=== PATIENT | male | born 1995 | race Caucasian/White ===

== ENCOUNTER 2018-05-18 19:42 | Emergency (ER) | payer SELFPAY ==
[2018-05-18 20:41] VITALS: BP 113/66
--- NOTE | 2018-05-18 21:02 | UC ---
Throat Pain/Nasal Diogenes HPI - HPI Summary HPI Summary: Pt presents with sore throat x 2 days tactile fever, painful swallowing. no drooling ear feel full. no sinus pain. no cough. no rash. + theraflu with little relief Pt's medications reviewed this visit - History of Current Complaint Chief Complaint: UCRespiratory Stated Complaint: SORE THROAT Time Seen by Provider: 05/18/18 21:01 Hx Obtained From: Patient Onset/Duration: Gradual Onset Severity: Moderate Pain Intensity: 5 - Allergies/Home Medications Allergies/Adverse Reactions: Allergies Allergy/AdvReac Type Severity Reaction Status Date / Time No Known Allergies Allergy Verified 05/18/18 20:41 Home Medications: Home Medications Pheniramine/P-Eph/Acetaminophn [Theraflu Flu & Sore Throa] 1 ramsey PO PRN [History] Vitamins* 05/18/18 [History] PMH/Surg Hx/FS Hx/Imm Hx Previously Healthy: Yes - Surgical History Surgical History: Yes Surgery Procedure, Year, and Place: RIGHT HIP ARTHROSCOPY 2011. WISDOM TEETH REMOVAL. SURGERY FOR EPIDURAL HEMATOMA 01/2018 - Family History Known Family History: Positive: Respiratory Disease - Social History Occupation: Student Lives: Dormitory/Roommates Alcohol Use: Occasionally Alcohol Amount: 3 TIMES/WEEK Substance Use Type: Marijuana Substance Use Comment - Amount & Last Used: MEDICAL MARIJUANA FOR DEPRESSION AND ANXIETY Smoking Status (MU): Former Smoker Type: Cigarettes Amount Used/How Often: LESS THAN 1/4 PPD Have You Smoked in the Last Year: Yes When Did the Patient Quit Smoking/Using Tobacco: 04/21/15 - Immunization History Most Recent Influenza Vaccination: UNSURE Review of Systems Constitutional: Negative Skin: Negative ENT: Sore Throat All Other Systems Reviewed And Are Negative: Yes Physical Exam - Summary Physical Exam Summary: Vital Signs Reviewed: Yes A+Ox3, no distress Eyes: Conjunctiva Clear, ARYA. EOM intact and full ENT: Hearing grossly normal TM x 2 clear, mmoist, mild PND + erythema, uvula midline, no exudate, Neck: Positive: Supple + submandibular LA b/l Respiratory: Positive: No respiratory distress, No accessory muscle use + CTA throughout no w/r Cardiovascular: RRR nl s1, s2 no m/r CBT <2 sec abd soft + BS nt/nd no guarding, no distension Musculoskeletal Exam: FLORES x 4 without difficulty Strength Intact, ROM Intact Neurological: Positive: Alert, + sensation throughout Psychological: Positive: Normal Response To Family Skin: Positive: no rash, no ecchymosis Triage Information Reviewed: Yes Vital Signs: Initial Vital Signs Temp 99.2 F 05/18/18 20:36 Pulse 79 05/18/18 20:36 Resp 16 05/18/18 20:36 BP 113/66 05/18/18 20:36 Pulse Ox 99 05/18/18 20:36 Throat Pain/Nasal Course/Dx - Course Course Of Treatment: Pt with sore throat x 2 days. Pt with + strep. abx. hydrate. motrin/apap. secretion precaution. return precautions - Differential Dx/Diagnosis Provider Diagnoses: strep pharyngitis Discharge - Sign-Out/Discharge Documenting (check all that apply): Patient Departure All imaging exams completed and their final reports reviewed: No Studies - Discharge Plan Condition: Stable Disposition: HOME Prescriptions: Amoxicillin PO (*) [Amoxicillin 500 MG CAP*] 500 mg PO Q12H #20 cap predniSONE TAB* [Deltasone 20 MG TAB*] 40 mg PO DAILY #8 tab Patient Education Materials: Strep Throat (ED) Referrals: No Primary Care Phys,NOPCP [Primary Care Provider] - [facility] [Outside] Additional Instructions: - Okay to alternate ibuprofen (Advil, Motrin) 600mg and Tylenol every 3 hours for pain. Take with food. Do NOT take for more than 4-5 days - Okay to gargle and spit every 4 hours as needed for pain - Stay well hydrated - frequent sips of cold fluids will be soothing to your throat (popsicles, jello, ice cream, ice water). Avoid excess caffeine until your symptoms have resolved. - Do not share eating, drinking utensils. Throw out your toothbrush when your symptoms resolved -Throat infections are spread by oral secretions - do not share eating or drinking utensils until you symptoms are resolved. Clean items that may get your secretions such as cell phones, ipads, computer mouse, television remotes. Once you have been on antibiotics for 2 days, change your toothbrush and your pillowcase -Take prednisone and antibiotics as prescribed until gone - Contact your doctor, return here, or go to the health center with questions or concerns. - Billing Disposition and Condition Condition: STABLE Disposition: Home
[2018-05-18] MEDS ORDERED: predniSONE TAB* 20 MG PO ONE (21:09)
[2018-05-18] MEDS ORDERED: Amoxicillin PO (*) 500 MG CAP PO ONE (21:09)
== END 2018-05-18 21:26 | disposition home or self-care (01) ==
LOC: UCEAST 19:42
DX: J02.0 Streptococcal pharyngitis (principal); Z87.891 Personal history of nicotine dependence
CPT/HCPCS: 87651; 99212; A9270-GY; G0463; J7512

== ENCOUNTER 2019-06-26 02:35 | Emergency (ER) | payer OTHER ==
--- NOTE | 2019-06-26 02:55 | ED ---
Psychiatric Complaint - HPI Summary HPI Summary: Patient is a 24 y/o M presenting to [facility] via EMS and police under 941 status for self-harm. Patient had gotten into an argument with his girlfriend damaris. He subsequently punched a hole in a wall and then cut his forearm with a knife afterwards. Girlfriend was concerned and called police. It is reported that the patient did not harm his GF. Patient claims that he has not had "real" SI. He states that he was extremely frustrated and upset. Patient feels that he does not require a mental health evaluation and that he does not need to be in ED. He states that, "I was upset and I needed a moment". He denies previous episodes of self-cutting. Patient does endorse Hx of depression for the past ten years and states that he works with a psychiatrist "multiple times a week". He also claims Hx of substance abuse in high school. Patient notes that he takes Adderall, Cymbalta, fioricet, medical marijuana, Ativan, and Xanax. He reports occasional alcohol usage but denies any consumption tonight. Patient claims Hx of fall which resulted in an epidural hematoma and subsequent brain surgery. FMHx of diabetes in uncle is noted. Home medications and allergies are reviewed. - History Of Current Complaint Chief Complaint: EDMentalHealth Time Seen by Provider: 06/26/19 02:42 Hx Obtained From: Patient Onset/Duration: Lasting Hours Timing: Hours Character: Frustrated Aggravating Factor(s): Recent Stress Has Suicidal: Reports: Demonstrates Gesture - self-cutting. Denies: Thoughts - denies - Allergies/Home Medications Allergies/Adverse Reactions: Allergies Allergy/AdvReac Type Severity Reaction Status Date / Time No Known Allergies Allergy Verified 05/18/18 20:41 PMH/Surg Hx/FS Hx/Imm Hx Endocrine/Hematology History: Denies: Hx Diabetes, Hx Thyroid Disease Cardiovascular History: Denies: Hx Hypertension Respiratory History: Reports: Hx Asthma - EXERCISE INDUCED Denies: Hx Chronic Obstructive Pulmonary Disease (COPD) GI History: Denies: Hx Ulcer Sensory History: Reports: Hx Contacts or Glasses - GLASSES Denies: Hx Hearing Aid Opthamlomology History: Reports: Hx Contacts or Glasses - GLASSES Neurological History: Reports: Other Neuro Impairments/Disorders - ADHD Psychiatric History: Reports: Hx Anxiety, Hx Depression - Surgical History Surgery Procedure, Year, and Place: RIGHT HIP ARTHROSCOPY 2011. WISDOM TEETH REMOVAL. SURGERY FOR EPIDURAL HEMATOMA 01/2018 Hx Anesthesia Reactions: No Infectious Disease History: No Infectious Disease History: Denies: Hx Hepatitis, Hx Human Immunodeficiency Virus (HIV), Traveled Outside the [place] in Last 30 Days - Family History Known Family History: Positive: Diabetes, Respiratory Disease - Social History Alcohol Use: Occasionally Alcohol Amount: 3 TIMES/WEEK Substance Use Type: Reports: Marijuana Substance Use Comment - Amount & Last Used: MEDICAL MARIJUANA FOR DEPRESSION AND ANXIETY Smoking Status (MU): Former Smoker Type: Cigarettes Amount Used/How Often: LESS THAN 1/4 PPD Have You Smoked in the Last Year: Yes Review of Systems Negative: Fever - on vitals, temp is 97.6 F Psychological: Other - positive - self-harm All Other Systems Reviewed And Are Negative: Yes Physical Exam - Summary Physical Exam Summary: General: Well-developed, Well-nourished Male. No acute distress. Unkempt appearance. HEENT: Normocephalic, Atraumatic. Eyes: Conjuctiva normal, PERRL. Ears: TMs within normal limits. Nares: (-) discharge, (-) erythema. Oropharynx: Clear, mucous membranes moist, (-) exudates. Neck: Soft, FROM, (-) lymphadenopathy, (-) thyromegaly, (-) JVD. Cardiovascular: Normal sinus rhythm, (-) murmur. Lungs: Clear to auscultation bilaterally (-) wheezes, (-) rales, (-) rhonchi. Abdomen: Soft, non-tender, non-distended, (-) organomegaly, normal bowel sounds. Back: (-) CVA tenderness Extremities: No edema. Skin: Warm, dry, (-) rash. Neuro: Alert and oriented x3, no focal deficits. Psychiatric: Makes good eye contact but odd affect. Triage Information Reviewed: Yes Vital Signs On Initial Exam: Initial Vitals Temp Pulse Resp BP Pulse Ox 97.6 F 94 16 146/96 100 06/26/19 02:36 06/26/19 02:36 06/26/19 02:36 06/26/19 02:36 06/26/19 02:36 Vital Signs Reviewed: Yes Procedures - Sedation Patient Received Moderate/Deep Sedation with Procedure: No Diagnostics - Vital Signs Vital Signs Temp Pulse Resp BP Pulse Ox 06/26/19 02:36 97.6 F 94 16 146/96 100 - Laboratory Result Diagrams: 06/26/19 03:03 06/26/19 03:03 Lab Statement: Any lab studies that have been ordered have been reviewed, and results considered in the medical decision making process. Re-Evaluation - Re-Evaluation First Eval Re-Evaluation Time: 03:48 Comment: Patient is medically cleared for MHE. Second Eval Re-Evaluation Time: 05:54 Comment: Patient is a hold pending collateral. Course/Dx - Course Assessment/Plan: 24-year-old male with concern for suicidal ideation brought in on 941. Patient admits he had a fight with his girlfriend. He was very frustrated. He wanted to punch a hole in the wall of his apartment. Instead he cut his left forearm with a knife. He became concerned and called the police to check on him. Patient is very agitated upon arrival. Very resistant to the process of getting checked out. Patient eventually does change his closed and allows blood work. Gives urine. Workup demonstrates cocaine in his urine as well as amphetamines and benzos which he states are prescribed as well as medical marijuana. Patient seen for mental health evaluation. He is placed on hold until psychiatrist can get collateral information. Incidental changes shift - Differential Dx/Clinical Impression Provider Diagnosis: Cocaine abuse, Anxiety - Physician Notifications Discussed Care Of Patient With: Eleuterio Lamar Time Discussed With Above Provider: 05:54 Instructed by Provider To: Other - [id number] - reinforced steel placing supervisor Eloise states that the patient's case was reviewed with Dr. Lamar. Patient will be a mental health hold pending collateral. Discharge ED - Sign-Out/Discharge Documenting (check all that apply): Sign-Out Patient Signing out patient TO: Lane Leyva - Discharge Plan Condition: Stable Referrals: No Primary Care Phys,NOPCP [Primary Care Provider] - - Billing Disposition and Condition Condition: STABLE - Attestation Statements Document Initiated by Scribe: Yes Documenting Scribe: JASMIN GALVIN Provider For Whom Scribe is Documenting (Include Credential): RACHNA MONSIVAIS MD Scribe Attestation: JASMIN Flanagan, scribed for RACHNA MONSIVAIS MD on 06/26/19 at 0649. Scribe Documentation Reviewed: Yes Provider Attestation: The documentation as recorded by the scribe, JASMIN GALVIN accurately reflects the service I personally performed and the decisions made by me, RACHNA MONSIVAIS MD Status of Scribe Document: Viewed
[2019-06-26 03:08] LABS: ABS Basophils 0.1 10^3/ul (0-0.2); ABS Eosinophils 0.3 10^3/ul (0-0.6); ABS Lymphocytes 2.9 10^3/ul (1.0-4.8); ABS Monocytes 0.8 10^3/ul (0-0.8); ABS Neutrophils 6.7 10^3/ul (1.5-7.7); Eosinophil % 2.7 %; Hematocrit 42 % (42-52); Hemoglobin 14.8 g/dL (14.0-18.0); Lymphocyte % 26.8 %; Mean Corpuscular HGB Conc 35 g/dL (31-36); Mean Corpuscular Hemoglobin 30 pg (27-31); Mean Corpuscular Volume 87 fL (80-94); Mean Platelet Volume 7.4 fL (7.4-10.4); Platelet Count 339 10^3/uL (150-450); Red Blood Count 4.88 10^6 /uL (4.18-5.48); Red Cell Distribution Width 13 % (10-15); White Blood Count 10.7 10^3/uL (3.5-10.8)
[2019-06-26 03:26] LABS: ALT 18 U/L (7-52); AST 15 U/L (13-39); Albumin 4.8 g/dL (3.2-5.2); Albumin/Globulin Ratio 1.5 (1-3); Alkaline Phosphatase 64 U/L (34-104); Anion Gap 9 mmol/L (2-11); BUN/Creatinine Ratio 9.3 (8-20); Blood Urea Nitrogen 11 mg/dL (6-24); CO2 Carbon Dioxide 28 mmol/L (22-32); Calcium 10.3 mg/dL (8.6-10.3); Chloride 102 mmol/L (101-111); EGFR African American 91.8 (>60); EGFR Non-African American 75.8 (>60); Globulin 3.2 g/dL (2-4); Glucose 116 mg/dL (70-100); Potassium 3.9 mmol/L (3.5-5.0); Sodium 139 mmol/L (135-145)
[2019-06-26 03:32] LABS: Acetaminophen < 15 mcg/mL; Alcohol < 10 mg/dL (<10); Salicylate < 2.50 mg/dL (<30)
[2019-06-26 03:47] LABS: TSH (Thyroid Stimulating Horm) 1.13 mcIU/mL (0.34-5.60)
[2019-06-26 03:54] LABS: Lithium < 0.10 mmol/L (0.6-1.2)
[2019-06-26 04:32] LABS: Urine Appearance Clear; Urine Bacteria Absent (Absent); Urine Bilirubin 1+ (Negative); Urine Blood Negative (Negative); Urine Color Amber; Urine Glucose Negative (Negative); Urine Ketones Trace (Negative); Urine Nitrite Negative (Negative); Urine Protein 1+(30 mg/dL) (Negative); Urine Red Blood Cell Absent (Absent); Urine Specific Gravity 1.029 (1.010-1.030); Urine Urobilinogen Positive (Negative); Urine White Blood Cell Trace(0-5/hpf) (Absent)
[2019-06-26 04:55] LABS: Urine Benzodiazepine Screen Presumptive Positive (None Detect); Urine Opiates Screen None Detected (None Detect)
--- NOTE | 2019-06-26 07:11 | ED ---
Progress - Progress Note Progress Note: Patient is a sign-out at 07:00 on 06/26/[address] Erin Carroll MD to Dr. Lane Leyva MD at shift change, pending MH hold. At 09:10, commercial collections specialist reports that patient's case was reviewed by Grecia Kevin. Patient will be discharged with a diagnosis of unspecified depression and emotional crisis. - Consult/PCP Time Called: 03:50 Re-Evaluation - Re-Evaluation First Eval Re-Evaluation Time: 03:48 Comment: Patient is medically cleared for MHE. Second Eval Re-Evaluation Time: 05:54 Comment: Patient is a MH hold pending collateral. Course/Dx - Course Course Of Treatment: Patient is a sign-out at 07:00 on 06/26/[address] Erin Carroll MD to Dr. Lane Leyva MD at shift change, pending MH hold. At 09:10 , commercial collections specialist reports that patient's case was reviewed by Grecia Kevin. Patient will be discharged with a diagnosis of unspecified depression and emotional crisis. - Diagnoses Provider Diagnoses: Cocaine abuse, Anxiety, Depression, Emotional crisis - Provider Notifications Discussed Care Of Patient With: Amish Kevin - At 09:10, commercial collections specialist reports that patient's case was reviewed by Grecia Kevin. Patient will be discharged with a diagnosis of unspecified depression and emotional crisis. Time Discussed With Above Provider: 09:10 Instructed by Provider To: Other - Discharge Discharge ED - Sign-Out/Discharge Documenting (check all that apply): Patient Departure - Discharge, Receiving Sign-Out Receiving patient FROM: Erin Carroll - 07:00 on 06/26/19 - Discharge Plan Condition: Stable Disposition: HOME Referrals: KATE EDEN [Other] (You are to follow up with your private therapist which you communicate through [facility]. ) Care [facility] [Outside] - Billing Disposition and Condition Condition: STABLE Disposition: Home - Attestation Statements Document Initiated by Scribe: Yes Documenting Scribe: Francie Hernandez Provider For Whom Scribe is Documenting (Include Credential): Lane Leyva MD Scribe Attestation: Francie Flanagan, scribed for Lane Leyva MD on 06/26/19 at 1323. Scribe Documentation Reviewed: Yes Provider Attestation: The documentation as recorded by the scribe, Francie Hernandez accurately reflects the service I personally performed and the decisions made by me, Lane Leyva MD Status of Scribe Document: Viewed
[2019-06-26 10:00] VITALS: BP 116/64
== END 2019-06-26 10:00 | disposition home or self-care (01) ==
LOC: ED 02:35
DX: F14.10 Cocaine abuse, uncomplicated (principal); F41.9 Anxiety disorder, unspecified; F32.9 Major depressive disorder, single episode, unspecified; F43.20 Adjustment disorder, unspecified; Z87.891 Personal history of nicotine dependence; Z79.899 Other long term (current) drug therapy
CPT/HCPCS: 36415; 80053; 80178; 80307; 80320; 80329; 81003; 81015; 84443; 85025; 87086; 99284; G0480